=== PATIENT | male | born 1945 | race Caucasian/White ===

== ENCOUNTER 2022-03-19 20:44 | Observation (INO) ==
[2022-03-19 21:50] LABS: Basophils # (auto) 0.05 K/uL (0-0.2); Basophils % (auto) 0.4 %; Eosinophils # (auto) 0.38 K/uL (0-0.50); Eosinophils % (auto) 2.8 %; Hematocrit (blood only) 44.5 % (42.0-52.0); Immature Granulocytes # (auto) 0.04 K/uL (0.01-0.20); Immature Granulocytes % (auto) 0.3 %; Lymphocytes # (auto) 1.98 K/uL (1.2-3.4); Lymphocytes % (auto) 14.5 %; Mean Corpuscular Hemoglobin 32.4 pg (25.0-34.0); Mean Corpuscular Hgb Conc 33.7 g/dL (32.0-36.0); Mean Corpuscular Volume 96.1 fL (80.0-100.0); Mean Platelet Volume 10.4 fL (9.4-12.4); Monocytes # (auto) 0.76 K/uL (0.11-0.59); Monocytes % (auto) 5.6 %; Neutrophils # (auto) 10.48 K/uL (1.40-6.50); Neutrophils % (auto) 76.4 %; Platelet Count 310 K/uL (130-400); RDW Coefficient of Variation 14.6 % (11.5-14.5); RDW Standard Deviation 52.6 fL (36.4-46.3); Red Blood Count 4.63 M/uL (4.70-6.10); White Blood Count 13.69 K/ul (4.8-10.8)
[2022-03-19 21:53] LABS: Alanine Aminotransferase 28 U/L (7-52); Albumin Globulin Ratio 1.2 (0.9-2); Albumin Level 4.4 gm/dl (3.4-5.0); Alkaline Phosphatase 118 U/L (34-104); Anion Gap 7 (3-11); Aspartate Aminotransferase 29 U/L (13-39); BUN Creatinine Ratio 16.3 (10-20); Bilirubin,Total 0.4 mg/dl (0.2-1.0); Blood Urea Nitrogen 23 mg/dl (6-23); Carbon Dioxide 29 mmol/L (21-32); Chloride 102 mmol/L (98-107); Est GFR (African American) 55.3 ml/min; Est GFR (Non-African American) 47.7 ml/min; Globulin 3.6 gm/dl (2.5-4.0); Glucose 115 mg/dl (70-99(Fasting)); Potassium 4.8 mmol/L (3.5-5.1); Sodium 138 mmol/L (136-145)
--- NOTE | 2022-03-19 23:37 | Emergency Department Note ---
Impression & Plan Acute bronchospasm, Elevated troponin, Tachycardia Admit to the [facility] ED Provider Note NAME: JERZY GUAJARDO JR AGE: 76 SEX: M ARRIVES VIA: Ambulance INFORMANT: Patient ED PROVIDER(S): Suzy Mack DO CHIEF COMPLAINT: Shortness of breath PLAN: Disposition: Admit to the [facility] Condition: Guarded MEDICAL DECISION MAKING: This is a 76-year-old male patient who presents to the emergency department with a sudden onset of shortness of breath after being exposed to mold in his pantry. Patient was moving objects around in his pantry when he noticed a moderate amount of mold and inhaled it. He immediately developed shortness of breath and a heaviness on his chest. He could not catch his breath. Upon EMS arrival, he was noted to be hypoxic with an O2 saturation of 83% and gasping for air. They placed him on supplemental oxygen. He was originally on a nonrebreather mask and then had to be placed on CPAP by EMS. Upon arrival in the ER, he was placed on BiPAP to maintain O2 saturations. We were able to transition him to room air and his chest discomfort had resolved. He did remain tachycardic. He did receive a dose of IV Lopressor which brought his heart rate down. Patient was noted to have an elevated troponin which was most likely secondary to demand from his elevated heart rate but serial enzymes will be required because of his chest pain complaint. [facility]. Triage Nursing notes reviewed and agree with them. Prior medical records reviewed Vital Signs: reviewed and remarkable for tachycardia Differential diagnosis: Pneumonitis, CHF, PE, pneumothorax, COVID, bronchospasm, STEMI ER treatment provided: IV Lopressor Diagnostics interpreted by me: ECG: Sinus tachycardia at 127. There is no ST segment elevation or signs of ischemia. There is no ectopy. Cardiac Monitoring: Sinus tachycardia at 107 Laboratory studies: See below Imaging studies: As per my interpretation Portable chest x-ray: No acute pulmonary infiltrates or consolidation. There is no significant evidence of heart failure. There is no pneumothorax HPI: 76/M arrives for evaluation of shortness of breath. ROS: See above HPI for pertinent positives & negatives. A total of 10 systems reviewed and were otherwise negative. PAST MEDICAL HISTORY:Emphysema and throat cancer; tobacco abuse and hypercholesterolemia PAST SURGICAL HISTORY:See Below FAMILY HISTORY:See Below SOCIAL HISTORY:Patient lives with his who has muscular dystrophy and acts as the primary caregiver; he still smokes. HOME MEDICATIONS:See list ALLERGIES:None VITALS:See Below PHYSICAL EXAMINATION: HEENT: Head - normocephalic and atraumatic. Pupils are equal, round, and reactive to light. Extraocular eye muscles are intact, and sclera are a nicteric. Nose - moist nasal mucosa without discharge. Mouth - moist buccal mucosa. Oropharynx is nonerythematous and there is no tonsillar exudate or edema noted. Neck: Supple; no JVD or cervical lymphadenopathy Heart: Tachycardic rate with a regular rhythm there is a normal S1 and S2 with no murmurs, clicks, or gallops appreciated. Lungs: Clear to auscultation bilaterally with no wheezes, rales, or rhonchi, although he has very little air movement on auscultation Abdomen: Soft, completely nontender, nondistended, with good bowel sounds. There are no palpable pulsatile masses or hepatosplenomegaly. There is no guarding, rigidity, or rebound noted. Extremities: No evidence of cyanosis, clubbing, or edema. There are easily palpable peripheral pulses. Skin: warm and dry with good turgor and no rashes. ED COURSE: Times/Reassessments: 2114: The patient was evaluated in room C1. A complete history and physical was performed. A twelve-lead EKG was obtained as described above. An order was placed for continuous cardiac monitoring. The patient remained in sinus tachycardia at 107. A portable chest x-ray was performed. We were able to remove the patient from BiPAP onto room air and his O2 saturations remained stable. I reviewed laboratory studies with the patient. Patient's heart rate became elevated again and he was given a dose of IV Lopressor which brought the heart rate down into the 90s. I discussed the case with the [facility] Hospitalist and they will evaluate for further management Suzy Mack DO Past Med/Surg History Surgical History Hx of appendectomy Hx of cataract surgery Family History Mother Breast cancer Sister Breast cancer Father Myocardial infarction Denies family history of Ovarian cancer Prostate cancer Diabetes Colorectal cancer Hypertension Social History Smoking Status: Current every day smoker Tobacco Type: Cigarettes Cigarettes Per Day: 5; Second Hand Exposure: No; Hx Alcohol Use: Yes Hx Substance Use: No Preferred Language: Azeri Communication Ability: Effective Oral And Maxillofacial Surgeon Required: No Beliefs That Will Affect Care: None marital status: Current Living Situation: Spouse Current Living Situation Comment: 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 Feels Safe at Home: Yes caffeine: Yes (coffee) Dental Care, Regularly: No Physical Activity Frequency: 1-2 Times per Week Physical Activity Frequency Comment: walking Seatbelt Use: always Sunscreen Use: No Assistive Devices: None Allergies Allergies Allergy/AdvReac Type Severity Reaction Status Date / Time No Known Allergies Allergy Verified 03/19/22 23:22 Home Meds Home Medications Medication Instructions Recorded Confirmed acetaminophen 500 mg tablet 500 mg PO DIRECTED PRN Pain 03/19/22 03/19/22 (Tylenol Extra Strength) Previous Rx's Medication Instructions Recorded aspirin 81 mg tablet,delayed 81 mg PO QAM #30 tabs 03/20/22 release losartan 25 mg tablet 25 mg PO DAILY #30 tabs 03/20/22 Results & Data (ED) Vital Signs Vital Signs - 24 hr 03/20/22 00:00 Pulse Rate [Left Finger] 109 H Respiratory Rate 24 Blood Pressure [Left Arm] 170/83 H Blood Pressure Mean [Left Arm] 112 Pulse Oximetry 92 Oxygen Delivery Method Room Air Laboratory Data 03/19/22 20:49 03/19/22 20:49 Lab Results 03/19/22 03/19/22 03/19/22 Range/Units 20:49 20:49 22:39 WBC 13.69 H (4.8-10.8) K/ul RBC 4.63 L (4.70-6.10) M/uL Hgb 15.0 (14.0-18.0) g/dl Hct 44.5 (42.0-52.0) % MCV 96.1 (80.0-100.0) fL MCH 32.4 (25.0-34.0) pg MCHC 33.7 (32.0-36.0) g/dL RDW Std Deviation 52.6 H (36.4-46.3) fL RDW Coeff of Harman 14.6 H (11.5-14.5) % Plt Count 310 (130-400) K/uL MPV 10.4 (9.4-12.4) fL Immature Gran % (Auto) 0.3 % Neut % (Auto) 76.4 % Lymph % (Auto) 14.5 % Early % (Auto) 5.6 % Eos % (Auto) 2.8 % Baso % (Auto) 0.4 % Neut # (Auto) 10.48 H (1.40-6.50) K/uL Lymph # (Auto) 1.98 (1.2-3.4) K/uL Early # (Auto) 0.76 H (0.11-0.59) K/uL Eos # (Auto) 0.38 (0-0.50) K/uL Baso # (Auto) 0.05 (0-0.2) K/uL Immature Gran # (Auto) 0.04 (0.01-0.20) K/uL Sodium 138 (136-145) mmol/L Potassium 4.8 (3.5-5.1) mmol/L Chloride 102 (98-107) mmol/L Carbon Dioxide 29 (21-32) mmol/L Anion Gap 7 (3-11) BUN 23 (6-23) mg/dl Creatinine 1.41 H (0.6-1.4) mg/dl Est Cr Clr Drug Dosing Not Reportable Est GFR ( Amer) 55.3 ml/min Est GFR (Non-Af Amer) 47.7 ml/min BUN/Creatinine Ratio 16.3 (10-20) Glucose 115 H (70-99(Fasting)) mg/dl Calcium 10.0 (8.5-10.1) mg/dl Total Bilirubin 0.4 (0.2-1.0) mg/dl AST 29 (13-39) U/L ALT 28 (7-52) U/L Alkaline Phosphatase 118 H (34-104) U/L Troponin I High Sens 32.0 H (0-20) pg/ml Total Protein 8.0 (6.0-8.3) gm/dl Albumin 4.4 (3.4-5.0) gm/dl Globulin 3.6 (2.5-4.0) gm/dl Albumin/Globulin Ratio 1.2 (0.9-2) Administered Medications Discontinued Medications Aspirin (Aspirin Chew 324 Mg) 324 mg PO NOW STA Stop: 03/19/22 23:51 Last Admin: 03/20/22 00:04 Dose: 324 mg Documented By: LUIS Aspirin (Aspirin 81 Mg Ectab) 81 mg PO [facility] Stop: 04/19/22 08:59 Last Admin: 03/20/22 08:16 Dose: 81 mg Documented By: JOANIE Atropine Sulfate (Atropine Sulfate 0.1 Mg/Ml 10ml Syr) Confirm Administered Dose 2 mg IV .STK-MED ONE Stop: 03/20/22 13:05 Last Admin: 03/20/22 14:34 Dose: Not Given Documented By: JOANIE Dobutamine HCl (Dobutamine Hcl 12.5 Mg/Ml 20 Ml Vial) Confirm Administered Dose 250 mg IV .STK-MED ONE Stop: 03/20/22 13:05 Last Admin: 03/20/22 14:34 Dose: Not Given Documented By: JOANIE Influenza Virus Vaccine (Influenza Vaccine High Dose Pf 65+ 0.7 Ml Syr) 0.7 ml IM .ONCE ONE Stop: 03/20/22 09:01 Last Admin: 03/20/22 08:22 Dose: 0.7 ml Documented By: JOANIE Metoprolol Tartrate (Metoprolol Tartrate 1 Mg/Ml Vial) 5 mg IV NOW STA Stop: 03/19/22 23:51 Last Admin: 03/20/22 00:04 Dose: 5 mg Documented By: LUIS Metoprolol Tartrate (Metoprolol Tartrate 1 Mg/Ml Vial) Confirm Administered Dose 10 mg IV .STK-MED ONE Stop: 03/20/22 13:05 Last Admin: 03/20/22 14:34 Dose: Not Given Documented By: JOANIE Pneumococcal Polyvalent Vaccine (Pneumococcal Polysaccharides 25 Mcg/0.5 Ml Vial/Syr) 25 mcg IM .ONCE ONE Stop: 03/20/22 09:01 Last Admin: 03/20/22 08:26 Dose: 25 mcg Documented By: JOANIE Discharge Plan Visit Data Chief Complaint: Respiratory Distress Stated Complaint: SOB ED Provider: Suzy Mack Discharge Problem: Acute bronchospasm, Elevated troponin, Tachycardia Patient Disposition: Admitted As Inpatient Discharge Instructions Interventions: ED Discharge Assessment Last Done: 03/20/22 01:56
[2022-03-19] MEDS ORDERED: ASPIRIN CHEW 324 MG PO STA (23:50)
[2022-03-19] MEDS ORDERED: METOPROLOL TARTRATE 1 MG/ML VIAL IV STA (23:50)
--- NOTE | 2022-03-20 00:23 | History & Physical Report ---
Date of Service March 20, 2022 History of Present Illness Chief Complaint: The patient presents to the emergency department via ambulance due to cute onset of shortness of breath and heaviness in his chest when exposed to mold while cleaning out the pantry at home Primary Care Provider: SUZANNE Arreola The patient is a 76-year-old male with a past medical history of tobacco abuse. He presents to the emergency department with acute onset of shortness of breath, chest discomfort and hypoxia with O2 saturation of 83%, after exposure to mold while cleaning in his pantry at home. He denies any history of allergies or sensitivity to molds in the past. He was initially placed on BiPAP by emergency department, and was ultimately titrated downward to nasal cannula oxygen 2 L to keep his O2 saturations at 94% range. Allergies Allergy/AdvReac Type Severity Reaction Status Date / Time No Known Allergies Allergy Verified 03/19/22 23:22 Home Medications Medication Instructions Recorded Confirmed Type acetaminophen 500 mg tablet 500 mg PO DIRECTED PRN Pain 03/19/22 03/19/22 History (Tylenol Extra Strength) Past Med/Surg History Surgical History Hx of appendectomy Hx of cataract surgery Family History Mother Breast cancer Sister Breast cancer Father Myocardial infarction Denies family history of Ovarian cancer Prostate cancer Diabetes Colorectal cancer Hypertension Social History Smoking Status: Current every day smoker Tobacco Type: Cigarettes Cigarettes Per Day: 5; Second Hand Exposure: No; Do You Dip or Chew Tobacco: No; Tobacco Cessation Education Requested by Patient: No Hx Alcohol Use: Yes Hx Substance Use: No Preferred Language: Mohawk Communication Ability: Effective Vice President Network Required: No Beliefs That Will Affect Care: None marital status: Current Living Situation: Spouse Current Living Situation Comment: 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 Other Information That Helps Us Care for You: No Feels Safe at Home: Yes Safety Concerns: Feels Safe At This Time caffeine: Yes (coffee) Dental Care, Regularly: No Physical Activity Frequency: 1-2 Times per Week Physical Activity Frequency Comment: walking Seatbelt Use: always Sunscreen Use: No Assistive Devices: Denture - Upper, Denture - Lower and Glasses Review of Systems Review of Systems: The patient denies chest pain, palpitations, cough, lower extremity swelling, sore throat, fevers, chills, sweats, nausea, vomiting, diarrhea , constipation, abdominal pain, pelvic pain, blood in urine or stool, dysuria, urinary frequency or urgency, lightheadedness, dizziness, headache, memory loss, loss of consciousness, rash, abnormal bruising or bleeding, imbalance, focal or generalized weakness, numbness or tingling in arms or legs, generalized arthralgias or myalgias, back or neck pain, or night sweats. The review of systems is otherwise negative other than for that already noted above, and at least 10 systems have been reviewed. Physical Exam Physical Exam: The patient is awake, alert and oriented 3, well developed and well nourished, normocephalic and atraumatic, lying in bed and in no acute distress. HEENT--PERRL, EOMI, mucous membranes and oropharynx normal. Neck--supple. No JVD. No bruits. Thyroid normal, trachea midline, no adenopathy. Heart--normal S1 and S2. No murmurs, rubs or gallops. Lungs--.breath sounds diminished throughout bilaterally. No respiratory distress, no accessory muscle use. Abdomen--normal bowel sounds and soft. Nontender. Nondistended, no hernias or masses, no organomegaly. Extremities--no cyanosis or clubbing. No edema. Dermatologic--normal skin turgor, normal color, no abnormal lymph nodes, no rash. Neurologic--cranial nerves II through XII grossly intact. Rheumatologic--normal range of motion. Psychiatric--normal affect. Results & Data Results & Data ([facility]) Vital Signs (Past 12 Hours) Vital Signs Temp Pulse Pulse Resp BP BP Pulse Ox 03/20/22 00:00 109 H 24 170/83 H 92 03/19/22 22:25 107 H 22 129/77 92 03/19/22 21:32 94 03/19/22 20:56 100 03/19/22 20:56 36.5 C 129 H 36 H 171/89 H 100 03/19/22 20:52 128 H 25 H 100 O2 Del Method FiO2 03/20/22 00:00 Room Air 03/19/22 22:25 Room Air 03/19/22 21:32 Room Air 03/19/22 20:56 BiPAP 03/19/22 20:56 BiPAP 03/19/22 20:52 40 Laboratory Results Laboratory Results WBC 13.69 K/ul (4.8-10.8) H 03/19/22 20:49 RBC 4.63 M/uL (4.70-6.10) L 03/19/22 20:49 Hgb 15.0 g/dl (14.0-18.0) 03/19/22 20:49 Hct 44.5 % (42.0-52.0) 03/19/22 20:49 MCV 96.1 fL (80.0-100.0) 03/19/22 20:49 MCH 32.4 pg (25.0-34.0) 03/19/22 20:49 MCHC 33.7 g/dL (32.0-36.0) 03/19/22 20:49 RDW Std Deviation 52.6 fL (36.4-46.3) H 03/19/22 20:49 RDW Coeff of Harman 14.6 % (11.5-14.5) H 03/19/22 20:49 Plt Count 310 K/uL (130-400) 03/19/22 20:49 MPV 10.4 fL (9.4-12.4) 03/19/22 20:49 Immature Gran % (Auto) 0.3 % 03/19/22 20:49 Neut % (Auto) 76.4 % 03/19/22 20:49 Lymph % (Auto) 14.5 % 03/19/22 20:49 [place] % (Auto) 5.6 % 03/19/22 20:49 Eos % (Auto) 2.8 % 03/19/22 20:49 Baso % (Auto) 0.4 % 03/19/22 20:49 Neut # (Auto) 10.48 K/uL (1.40-6.50) H 03/19/22 20:49 Lymph # (Auto) 1.98 K/uL (1.2-3.4) 03/19/22 20:49 [place] # (Auto) 0.76 K/uL (0.11-0.59) H 03/19/22 20:49 Eos # (Auto) 0.38 K/uL (0-0.50) 03/19/22 20:49 Baso # (Auto) 0.05 K/uL (0-0.2) 03/19/22 20:49 Immature Gran # (Auto) 0.04 K/uL (0.01-0.20) 03/19/22 20:49 Sodium 138 mmol/L (136-145) 03/19/22 20:49 Potassium 4.8 mmol/L (3.5-5.1) 03/19/22 20:49 Chloride 102 mmol/L (98-107) 03/19/22 20:49 Carbon Dioxide 29 mmol/L (21-32) 03/19/22 20:49 Anion Gap 7 (3-11) 03/19/22 20:49 BUN 23 mg/dl (6-23) 03/19/22 20:49 Creatinine 1.41 mg/dl (0.6-1.4) H 03/19/22 20:49 Est Cr Clr Drug Dosing Not Reportable 03/19/22 20:49 Est GFR ( Amer) 55.3 ml/min 03/19/22 20:49 Est GFR (Non-Af Amer) 47.7 ml/min 03/19/22 20:49 BUN/Creatinine Ratio 16.3 (10-20) 03/19/22 20:49 Glucose 115 mg/dl (70-99(Fasting)) H 03/19/22 20:49 Calcium 10.0 mg/dl (8.5-10.1) 03/19/22 20:49 Total Bilirubin 0.4 mg/dl (0.2-1.0) 03/19/22 20:49 AST 29 U/L (13-39) 03/19/22 20:49 ALT 28 U/L (7-52) 03/19/22 20:49 Alkaline Phosphatase 118 U/L (34-104) H 03/19/22 20:49 Troponin I High Sens 32.0 pg/ml (0-20) H 03/19/22 22:39 Total Protein 8.0 gm/dl (6.0-8.3) 03/19/22 20:49 Albumin 4.4 gm/dl (3.4-5.0) 03/19/22 20:49 Globulin 3.6 gm/dl (2.5-4.0) 03/19/22 20:49 Albumin/Globulin Ratio 1.2 (0.9-2) 03/19/22 20:49 SARS-CoV-2, RNA, NAAT NEGATIVE (NEGATIVE) 03/20/22 00:23 Diagnostic Findings Acute bronchospasm status post mold exposure/COPD exacerbation- Patient with undiagnosed 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 Patient also received Lopressor 5 mg IV when his heart rate was up to the 120s The patient will be admitted to telemetry for serial cardiac enzymes, serial EKG's, cardiac rhythm monitoring and a 2-D echocardiogram with Dopplers. Likely type II supply demand mismatch associated with severe bronchospasm and tachycardia Continue aspirin at 81 mg daily Tobacco abuse- Cessation counseling Code Status & VTE Plan VTE Prophylaxis Plan VTE Prophylaxis will be ordered: Yes PG Care Time/CCT Total # of Minutes Spent Total Time Spent with Patient: Total time spent is greater than 50% in coordination of care (as documented) at patient's floor/unit and/or counseling patient: Coding Level of Care Code 88123 INT INP/OBS CARE 3/75MIN
[2022-03-20] MEDS ORDERED: ACETAMINOPHEN 325 MG TAB PO PRN (02:27)
[2022-03-20] MEDS ORDERED: ONDANSETRON INJ 2 MG/ML 2 ML VIAL IV PRN (02:27)
[2022-03-20] MEDS ORDERED: ALBUT/IPRATROP 3MG/0.5MG NEB 3 ML VIAL NEB PRN (02:56)
[2022-03-20 03:59] LABS: Basophils # (auto) 0.04 K/uL (0-0.2); Basophils % (auto) 0.3 %; Eosinophils # (auto) 0.13 K/uL (0-0.50); Hematocrit (blood only) 40.5 % (42.0-52.0); Hemoglobin 13.7 g/dl (14.0-18.0); Immature Granulocytes # (auto) 0.04 K/uL (0.01-0.20); Immature Granulocytes % (auto) 0.3 %; Lymphocytes # (auto) 1.74 K/uL (1.2-3.4); Mean Corpuscular Hemoglobin 32.9 pg (25.0-34.0); Mean Corpuscular Hgb Conc 33.8 g/dL (32.0-36.0); Mean Corpuscular Volume 97.1 fL (80.0-100.0); Mean Platelet Volume 9.8 fL (9.4-12.4); Monocytes # (auto) 0.73 K/uL (0.11-0.59); Monocytes % (auto) 5.9 %; Neutrophils # (auto) 9.73 K/uL (1.40-6.50); Neutrophils % (auto) 78.5 %; Platelet Count 304 K/uL (130-400); RDW Coefficient of Variation 14.6 % (11.5-14.5); RDW Standard Deviation 52.2 fL (36.4-46.3); Red Blood Count 4.17 M/uL (4.70-6.10); White Blood Count 12.41 K/ul (4.8-10.8)
[2022-03-20 04:12] LABS: Albumin Level 4.1 gm/dl (3.4-5.0); Calcium 9.9 mg/dl (8.5-10.1); Creatinine Clr Calc Pharmacy 30.2 ml/min; Est GFR (African American) 51.3 ml/min; Est GFR (Non-African American) 44.3 ml/min; Phosphorus 3.1 mg/dl (2.5-4.9); Potassium 4.7 mmol/L (3.5-5.1)
[2022-03-20 06:53] LABS: Appearance Urine Clear (Clear); Bacteria Urine Automated Negative (Negative); Bilirubin Urine Negative (Negative); Blood Urine Negative (Negative); Color Urine Dark Yellow; Glucose Urine UA Negative (Negative); Ketones Urine 1+ (Negative); Leukocyte Esterase Urine Negative (Negative); Nitrite Urine Negative (Negative); Protein Urine 1+ (Negative); RBC Urine Automated 0-4 /hpf (0-4); Specific Gravity Urine 1.021 (1.000-1.030); Urobilinogen Urine Negative (Negative)
--- NOTE | 2022-03-20 07:50 | XRay Report ---
SINGLE VIEW CHEST CLINICAL HISTORY: Dyspnea FINDINGS: 2 AP, portable, upright chest radiographs are compared to study dated 12/29/2020. The exami nation is degraded by portable technique and apical lordotic positioning. The heart is enlarged notin g atherosclerotic calcification of the thoracic aorta. The pulmonary vasculature is noncongested. Emp hysema and chronic interstitial thickening is similar to previous. Foci of parenchymal scarring are s een throughout both lungs, greatest at the lung bases. No superimposed airspace consolidation or larg e pleural effusion is identified. No pneumothorax is seen. The skeletal structures are osteopenic. Th e bony thorax is grossly intact. Calcific tendinopathy is noted in the left shoulder. IMPRESSION: Cardiomegaly and advanced emphysema with no acute cardiopulmonary abnormality identified. ACT 112: Negative or not required by law. Electronically signed by: Tavo Johnson M.D. 03/20/2022 7:49 AM
[2022-03-20] MEDS ORDERED: PNEUMOCOCCAL POLYSACCHARIDES 25 MCG/0.5 ML VIAL/SYR IM ONE (09:00)
[2022-03-20] MEDS ORDERED: INFLUENZA VACCINE HIGH DOSE PF 65+ 0.7 ML SYR IM ONE (09:00)
[2022-03-20] MEDS ORDERED: ASPIRIN 81 MG ECTAB PO SCH (09:00)
--- NOTE | 2022-03-20 10:57 | XCELERA ---
[id number]
--- NOTE | 2022-03-20 12:54 | Cardiology Consultation ---
Date of Consultation March 20, 2022 Assessment & Plan (1) Chest pain syndrome: -suspect related to his acute respiratory distress, however, should be investigated. -will proceed with a dobutamine stress echocardiogram. (2) LVH (left ventricular hypertrophy): -moderate LVH noted on current echocardiogram. -suspect this is secondary to untreated hypertension. -consider starting losartan 25 mg daily. (3) Elevated troponin: -likely a supply demand mismatch his acute presentation in the face of left ventricle hypertrophy. -as above, we will proceed with a dobutamine stress echocardiogram. (4) Hypercholesterolemia: -consider initiating atorvastatin or rosuvastatin. -agree with low-dose aspirin. History of Present Illness Attending Physician: Tommie Matt History of Present Illness Mr. Bro is a 76-year-old male admitted yesterday with acute respiratory failure and hypoxia along with a chest pain syndrome. This consultation was ordered to assist in his cardiac management. The patient was in his usual state of health until day of presentation. Was cleaning out the pantry in the kitchen and ran into a large amount of mold. He mainly became short of breath and struggles for approximately 10 minutes. He asked his to call 911. Of note, he did feel an elephant on my chest during the incident. That discomfort resolved prior to the arrival of the EMT TS. On route, he was placed on BiPAP. His initial oxygen saturation was 83% according to the record. He was able to be converted to nasal cannula while in the emergency room. The patient has had longstanding history of emphysema. He does note exertional dyspnea with most physical activity. On occasion, he does note a heaviness in his chest with physical activity. A fasting lipid panel performed back in December noted poor control with an LDL cholesterol 157. The patient has not had medical care throughout his lifetime. Currently, patient is resting comfortably in bed without complaints. Past medical and surgical history 1. Hypercholesterolemia 2. Moderate LVH 3. Emphysema 4. Appendectomy 5. Left intra-ocular lens implant-September 2013 Social history and lives with his Retired from the [employer] Smokes 5 cigarettes daily, 50 pack year history No alcohol Family history Mother in her 50s from a carcinoma Father in his 50s from a carcinoma Sister at 44 from breast carcinoma Review of systems A 10 review systems was undertaken and negative except for that described above. Allergies Allergy/AdvReac Type Severity Reaction Status Date / Time No Known Allergies Allergy Verified 03/19/22 23:22 Home Medications Medication Instructions Recorded Confirmed Type acetaminophen 500 mg tablet 500 mg PO DIRECTED PRN Pain 03/19/22 03/19/22 History (Tylenol Extra Strength) Patient History Surgical History Hx of appendectomy Hx of cataract surgery Family History Mother Breast cancer Sister Breast cancer Father Myocardial infarction Denies family history of Ovarian cancer Prostate cancer Diabetes Colorectal cancer Hypertension Social History Smoking Status: Current every day smoker Tobacco Type: Cigarettes Cigarettes Per Day: 5; Second Hand Exposure: No; Do You Dip or Chew Tobacco: No; Tobacco Cessation Education Requested by Patient: No Hx Alcohol Use: Yes Hx Substance Use: No Preferred Language: Azeri Communication Ability: Effective Metallographer Required: No Beliefs That Will Affect Care: None marital status: Current Living Situation: Spouse Current Living Situation Comment: 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 HEENT exam is negative. Neck is supple with full carotid upstrokes. No carotid bruits. Jugular venous pressure is flat at 90. There is no thyromegaly. Cardiovascular exam reveals a regular rhythm with distant heart sounds. No obvious murmurs. No S3 or S4. Lungs note distant breath sounds but no rales, rhonchi, or wheezes. Abdomen is soft nontender without bruits. Extremities reveal intact radial artery pulses bilaterally. There is no peripheral edema. Results & Data ([facility]) Vital Signs (Past 12 Hours) Vital Signs Temp Pulse Pulse Resp BP Pulse Ox Pulse Ox 03/20/22 11:37 36.5 C 84 18 149/68 H 91 03/20/22 08:07 36.4 C L 98 H 18 166/80 H 90 03/20/22 02:15 93 H 03/20/22 03:29 73 03/20/22 02:27 93 03/20/22 02:28 03/20/22 02:28 36.6 C 94 H 19 196/77 H 93 O2 Del Method O2 Del Method 03/20/22 11:37 Room Air 03/20/22 08:07 Room Air 03/20/22 02:15 03/20/22 03:29 03/20/22 02:27 Room Air 03/20/22 02:28 Room Air 03/20/22 02:28 Room Air Laboratory Results CBC notes hemoglobin 13.7, crit 40.5, white count 12.4, and platelet count [id number]. Electrolytes note a sodium of 139, potassium 4.7, chloride 103, bicarb 30, BUN 24, creatinine 1.5, and glucose of 100. Initial high sensitivity troponin is 32 with follow-up values of 33.9 and 35.2. Diagnostic Findings EKG notes sinus tachycardia with biatrial enlargement and voltage criteria for LVH. Chest x-ray notes cardiomegaly and emphysematous changes. PG Care Time/CCT Total # of Minutes Spent Total Time Spent with Patient: Total time spent is greater than 50% in coordination of care (as documented) at patient's floor/unit and/or counseling patient: Coding Level of Care Code 70790 INT INP/OBS CARE 3/75MIN Diagnoses Chest pain syndrome R07.9 LVH (left ventricular hypertrophy) I51.7 Elevated troponin R77.8 Hypercholesterolemia E78.00
--- NOTE | 2022-03-20 12:55 | Cardiology Consultation ---
Date of Consultation March 20, 2022 Assessment & Plan (1) Chest pain syndrome: -suspect related to his acute respiratory distress, however, should be investigated. -will proceed with a dobutamine stress echocardiogram. (2) LVH (left ventricular hypertrophy): -moderate LVH noted on current echocardiogram. -suspect this is secondary to untreated hypertension. -consider starting losartan 25 mg daily. (3) Elevated troponin: -likely a supply demand mismatch his acute presentation in the face of left ventricle hypertrophy. -as above, we will proceed with a dobutamine stress echocardiogram. (4) Hypercholesterolemia: -consider initiating atorvastatin or rosuvastatin. -agree with low-dose aspirin. History of Present Illness Attending Physician: Tommie Matt Allergies Allergy/AdvReac Type Severity Reaction Status Date / Time No Known Allergies Allergy Verified 03/19/22 23:22 Home Medications Medication Instructions Recorded Confirmed Type acetaminophen 500 mg tablet 500 mg PO DIRECTED PRN Pain 03/19/22 03/19/22 History (Tylenol Extra Strength) Patient History Surgical History Hx of appendectomy Hx of cataract surgery Family History Mother Breast cancer Sister Breast cancer Father Myocardial infarction Denies family history of Ovarian cancer Prostate cancer Diabetes Colorectal cancer Hypertension Social History Smoking Status: Current every day smoker Tobacco Type: Cigarettes Cigarettes Per Day: 5; Second Hand Exposure: No; Do You Dip or Chew Tobacco: No; Tobacco Cessation Education Requested by Patient: No Hx Alcohol Use: Yes Hx Substance Use: No Preferred Language: Vincentian Communication Ability: Effective Internal Control Specialist Required: No Beliefs That Will Affect Care: None marital status: Current Living Situation: Spouse Current Living Situation Comment: 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 HEENT exam is negative. Neck is supple with full carotid upstrokes. No carotid bruits. Jugular venous pressure is flat at 90. There is no thyromegaly. Cardiovascular exam reveals a regular rhythm with distant he art sounds. No obvious murmurs. No S3 or S4. Lungs note distant breath sounds but no rales, rhonchi, or wheezes. Abdomen is soft nontender without bruits. Extremities reveal intact radial artery pulses bilaterally. There is no peripheral edema. Results & Data ([facility]) Vital Signs (Past 12 Hours) Vital Signs Temp Pulse Pulse Resp BP Pulse Ox Pulse Ox 03/20/22 11:37 36.5 C 84 18 149/68 H 91 03/20/22 08:07 36.4 C L 98 H 18 166/80 H 90 03/20/22 02:15 93 H 03/20/22 03:29 73 03/20/22 02:27 93 03/20/22 02:28 03/20/22 02:28 36.6 C 94 H 19 196/77 H 93 O2 Del Method O2 Del Method 03/20/22 11:37 Room Air 03/20/22 08:07 Room Air 03/20/22 02:15 03/20/22 03:29 03/20/22 02:27 Room Air 03/20/22 02:28 Room Air 03/20/22 02:28 Room Air PG Care Time/CCT Total # of Minutes Spent Total Time Spent with Patient: Total time spent is greater than 50% in coordination of care (as documented) at patient's floor/unit and/or counseling patient: Coding Diagnoses Chest pain syndrome R07.9 LVH (left ventricular hypertrophy) I51.7 Elevated troponin R77.8 Hypercholesterolemia E78.00
[2022-03-20] MEDS ORDERED: DOBUTamine HCL 12.5 MG/ML 20 ML VIAL IV ONE (13:04)
[2022-03-20] MEDS ORDERED: ATROPINE SULFATE 0.1 MG/ML 10ML SYR IV ONE (13:04)
[2022-03-20] MEDS ORDERED: METOPROLOL TARTRATE 1 MG/ML VIAL IV ONE (13:04)
--- NOTE | 2022-03-20 14:23 | XCELERA ---
[id number]
--- NOTE | 2022-03-20 15:29 | Electrocardiogram Report ---
Test Reason : Blood Pressure : / mmHG Vent. Rate : 127 BPM Atrial Rate : 127 BPM P-R Int : 158 ms QRS Dur : 080 ms QT Int : 314 ms P-R-T Axes : 081 061 077 degrees QTc Int : 456 ms Poor data quality, interpretation may be adversely affected Sinus tachycardia Biatrial enlargement Voltage criteria for left ventricular hypertrophy Abnormal ECG No previous ECGs available Confirmed by Wenceslao Alvarado ([id number]) on 03/20/2022 3:29:06 PM Referred By: REFERRED SELF Confirmed By:Wenceslao Alvarado
--- NOTE | 2022-03-21 08:14 | Discharge Summary ---
Date of Service March 20, 2022 Admission HPI Per Admitting Provider The patient is a 76-year-old male with a past medical history of tobacco abuse. He presents to the emergency department with acute onset of shortness of breath, chest discomfort and hypoxia with O2 saturation of 83%, after exposure to mold while cleaning in his pantry at home. He denies any history of allergies or sensitivity to molds in the past. He was initially placed on BiPAP by emergency department, and was ultimately titrated downward to nasal cannula oxygen 2 L to keep his O2 saturations at 94% range. Principal Diagnosis CHest pain syndrome Discharge Exam The patient is awake, alert and oriented 3, well developed and well nourished, normocephalic and atraumatic, lying in bed and in no acute distress. HEENT--PERRL, EOMI, mucous membranes and oropharynx normal. Neck--supple. No JVD. No bruits. Thyroid normal, trachea midline, no adenopathy. Heart--normal S1 and S2. No murmurs, rubs or gallops. Lungs--.breath sounds diminished throughout bilaterally. No respiratory distress, no accessory muscle use. Abdomen--normal bowel sounds and soft. Nontender. Nondistended, no hernias or masses, no organomegaly. Extremities--no cyanosis or clubbing. No edema. Dermatologic--normal skin turgor, normal color, no abnormal lymph nodes, no rash. Neurologic--cranial nerves II through XII grossly intact. Rheumatologic--normal range of motion. Psychiatric--normal affect. Discharge Data Allergies Allergy/AdvReac Type Severity Reaction Status Date / Time No Known Allergies Allergy Verified 03/19/22 23:22 Consultations 03/19/22 23:52 ED Decision to Admit Stat 03/20/22 10:42 Consult Cardiology Routine Hospital Course (1) Elevated troponin: 1) Demand ischemia "Likely type II supply demand mismatch associated with severe bronchospasm and tachycardia Continue aspirin at 81 mg daily" Risk Factor(s): COPD exacerbation, smoking Treatment: As above Appreciate input from cardio: LVH (left ventricular hypertrophy): -moderate LVH noted on current echocardiogram. -suspect this is secondary to untreated hypertension. -consider starting losartan 25 mg daily. (2) Hypercholesterolemia: consider statin. will defer to PCP (3) Chest pain syndrome: Dobutamine stress test is negative. CKD stage 3 Serum creatinine of 1.41-1.50 mg/dl, associated with an estimated GFR of 44-48 ml/min. This is consistent with values available to this reader per EMR. As appropriate, consider documentation as suggested above. Thank you. Risk Factor(s): Age, smoking Treatment: Serial chemistries 3) Acute respiratory failure with hypoxia Patient was moving objects around in his pantry when he noticed a moderate amount of mold and inhaled it. He immediately developed shortness of breath and a heaviness on his chest. He could not catch his breath. Upon EMS arrival, he was noted to be hypoxic with an O2 saturation of 83% and gasping for air. They placed him on supplemental oxygen. He was originally on a nonrebreather mask and then had to be placed on CPAP by EMS. Upon arrival in the ER, he was placed on BiPAP to maintain O2 saturations.". Risk Factor(s): Hypersensitivity/allergic reaction Treatment: Supplemental O2, NRB-CPAP->BiPAP This has resolved. Now on room air. Will recommend close followup with PCP. 4)Moderate-severe protein-calorie malnutrition, BMI 16.4 kg/m*m SD is 16.4 kg/m*m. Risk Factor(s): Age, ?social conditions, tobacco abuse life style modifications. will defer cancer screening to PCP Total Time Total Time Spent Total Time Spent (In Minutes): 32 Discharge Plan Discharge Items Patient Disposition: Home - Self-Care Reason For Visit: NSTEMI Discharge Diagnosis: NSTEMI Activity: Resume your previous activity Non-emergency contact: Primary Care Provider Call non-emergency contact if: you have any medication questions Follow-up/Referrals: Jacob Camarena DO [Physician] - 03/26/22 12:00 pm Diet: Heart Healthy Addtl Attending Provider Instructions: You were evaluated for chest pain. Thankfully your stress test was negative. Your echocardiogram showed left ventricular hypertrophy. Essentially your heart muscle has been getting bulky as it has to fight high blood pressure. In this case, will recommend starting a blood pressure medicine: losartan. Take once a day, preferably in the evening. Followup with PCP in 1-2 weeks Pending Studies at Discharge: No Stand-Alone Forms: My [employer], Smoking Cessation Medications and DC Order Prescriptions: New aspirin 81 mg Tablet,Delayed Release (Dr/Ec) 81 mg PO QAM Qty: 30 0RF losartan 25 mg tablet 25 mg PO DAILY Qty: 30 0RF Continued acetaminophen [Tylenol Extra Strength] 500 mg Tablet 500 mg PO DIRECTED PRN (Reason: Pain) Discharge Orders: Discharge Order (Routine); Ordered 03/20/22 Ordered By: Tommie Matt Admission Data Admit Date/Time: 03/20/22 00:22 Attending Provider: Tommie Matt Admit Provider: Jose Ramon Barbosa Primary Care Provider: Lucie Fair Other Providers: Jose Ramon Barbosa ; Yordy Siddiqi ; Jaime Hurst ; Wenceslao Alvarado ; Kike Combs ; Naveen Royal ; Torito Hairston Jr ; Mannie Pearl ; Alecia Viramontes ; Brook Parish ; Byron Servin ; Brett Olivera ; Dereck Rodriguez ; Laurel Pacheco ; Giulia Blevins ; Toribio Zhao ; Almas Chiu ; Michael Cheema ; Kike Walsh V. Other Interventions: Discharge Summary Assessment (RN) Last Done: 03/20/22 16:45 Coding Level of Care Code HOSP INP/OBS DISCH >30 MIN Diagnoses Elevated troponin R77.8 Hypercholesterolemia E78.00 Chest pain syndrome R07.9
== END 2022-03-20 18:19 | disposition home or self-care (01) ==
LOC: ED 20:44 → INTOOBSV 03-20 00:22 → SUATTDRO 03-20 00:22 → 4W 03-20 00:22